=== PATIENT | female | born 1970 | race Caucasian/White ===

== ENCOUNTER 2021-11-17 09:33 | Outpatient (CLI) | payer OTHER | END 2021-11-17 09:34 | disposition home or self-care (01) | LOC: ULT 09:33 | PROVIDERS: ATTEND Family Medicine | DX: R10.12 Left upper quadrant pain (principal) | CPT/HCPCS: 76700 ==

== ENCOUNTER 2024-05-28 07:58 | Emergency (ER) | payer SELFPAY ==
[2024-05-28] MEDS ORDERED: Acetaminophen 500 MG TAB ONE (08:33)
[2024-05-28] MEDS ORDERED: Prochlorperazine 10 MG/2 ML VIAL ONE (08:33)
[2024-05-28] MEDS ORDERED: Ketorolac Tromethamine 30 MG (1 mL) VIAL ONE (08:33)
[2024-05-28 08:51] LABS: #Basophils 0.04 10x3/uL (0.0-0.2); %Basophils 0.9 % (0.0-1.0); %Eosinophils 1.1 % (0.0-10.0); %Lymphocytes 20.1 % (21.0-51.0); %Monocytes 5.6 % (0.0-10.0); %Neutrophils 72.1 % (42.0-75.0); Hemoglobin 13.2 g/dL (12.0-16.0); Mean Corpuscular HGB CONC 31.4 g/dL (32.0-36.0); Mean Corpuscular Hemoglobin 27.2 pg (27.0-31.0); Mean Corpuscular Volume 86.4 fL (78.0-98.0); Mean Platelet Volume 9.3 fL (7.4-10.4); Platelet Count 373 10x3/uL (130-400); RBC Distribution Width 13.9 % (11.5-14.5); Red Blood Cell (RBC) Count 4.86 mill/uL (4.20-5.40)
[2024-05-28 09:13] LABS: ALT (SGPT) 30 U/L (8-55); AST (SGOT) 22 U/L (5-34); Albumin 3.9 g/dL (3.5-5.0); Alkaline Phosphatase 88 U/L (40-110); Anion Gap 11 mmol/L (10-20); BUN (Urea Nitrogen) 14 mg/dL (9.8-20.1); Bilirubin, Total 0.4 mg/dL (0.2-1.2); Calc. Creatinine Clearance 0 mL/min (70-130); Calcium 9.6 mg/dL (7.8-10.44); Carbon Dioxide 25 mmol/L (22-29); Chloride 106 mmol/L (98-107); Estimated GFR 66; Globulin 3.9 g/dL (2.4-3.5); Glucose 108 mg/dL (70-105); Potassium 4.2 mmol/L (3.5-5.1); Protein, Total 7.8 g/dL (6.0-8.3); Sodium 138 mmol/L (136-145)
== END 2024-05-28 09:45 | disposition home or self-care (01) ==
LOC: ERS 07:58
DX: G43.909 Migraine, unspecified, not intractable, without status migrainosus (principal)
CPT/HCPCS: 36415; 80053; 85025; 96374; 96375; J0780; J1885